=== PATIENT | female | born 1975 | race Caucasian/White ===

== ENCOUNTER 2017-09-30 16:08 | Emergency (ER) | payer OTHER ==
[2017-09-30 16:52] VITALS: BP 118/93; PULSE 111
[2017-09-30 17:01] VITALS: BP 123/87; PULSE 98
--- NOTE | 2017-09-30 17:02 | PD ---
HPI Chief Complaint elevated BP and decr FM Date Seen: Sep 30, 2017 Time Seen: 16:56 Travel History International Travel<30 Days: No Contact w/Intl Traveler<30Days: No Known Affected Area: No History of Present Illness HPI Pt is a 41y/o @ 37.wks. She has PNC with Dr. Camp. She presents today for evaluation of elevated BPs and decr FM. She states that today she felt "clammy" so she decided to check her BP. It was elevated and kept going up. Highest reading was 154/102. She denies PARDO but states she has gained 5lbs since last week. Reports that swelling is minimal and "the best it has been in weeks". She also reports decr FM today. States that she works from home and has been focused on work but had two felipa aid drinks today and onyl felt one big movement. She called the office and was advised to present to triage for evaluation. Denies LOF, VB, ctx. Weeks Gestation: 37 Para: 0 : 3 History Past Medical History Medical History: Denies Significant Hx Obstetric History Obstetric History SAB x2 current Past Surgical History Narrative Surgical tonsillectomy appendectomy cholecystectomy wisdom teeth extraction removal of skin cancer Family History Family History: Negative Social History Alcohol Use: No Tobacco Use: No Substance Abuse: No Allergies-Medications Comments NKDA Narrative Medication zofran phenergan Review of Systems Except as stated in HPI: all other systems reviewed are Neg Physical Exam Narrative General: well developed, well nourished, no acute distress HEENT: normocephalic atraumatic, extraocular movements intact, neck supple Abdomen: soft, gravid, nontender, nondistended Uterus: fundus term Extremities: full range of motion Skin: normal coloration, no rashes, no suspicious skin lesions noted Neurologic: cranial nerves 2-12 grossly intact, normal muscle tone, normal gait Psychiatric: normal mood and affect, appropriate FHTs: 150s, +accels, no decels, moderate variability, reactive Hypericum: quiet Cvx: deferred Data Data Vital Signs Reviewed: Yes Orders Orders Vital Signs (Adult) .ON ADMISSION (09/30/17 16:51) ^ Labor Status (09/30/17 16:51) ^ Non Stress Test (09/30/17 16:51) Cbc No Diff, Includes Plts (09/30/17 16:51) Comprehensive Metabolic Panel (09/30/17 16:51) MDM Plan 41y/o @ 37.2wks with AMA, elevated BPs, and decr FM. -- BPs in triage 110-120/80-90 -- PIH labs ordered -- neg proteinuria -- FHTs cat 1 Update: PIH labs WNL. BPs normotensive. Stable for d/c home with precautions. Diagnosis Diagnosis: Primary Impression: 37 weeks gestation of Additional Impressions: AMA (advanced maternal age) multigravida 35+ Elevated blood pressure affecting in third trimester, antepartum Decreased movement affecting management of in third trimester Madonna Mijares MD Sep 30, 2017 17:02
[2017-09-30 17:15] VITALS: BP 121/90; PULSE 90
[2017-09-30 17:24] LABS: HEMOGLOBIN 12.9 GM/DL (11.6-15.3); MEAN CELL VOLUME 83.8 FL (80.0-100.0); MEAN CORPUSCULAR HEMOGLOBIN 27.8 PG (27.0-34.0); MEAN CORPUSCULAR HGB CONC 33.2 % (32.0-36.0); MEAN PLATELET VOLUME 10.5 FL (7.0-11.0); PLATELET COUNT 150 TH/MM3 (150-450); RED BLOOD COUNT 4.66 MIL/MM3 (4.00-5.30); RED CELL DISTRIBUTION WIDTH 15.3 % (11.6-17.2); WHITE BLOOD COUNT 8.9 TH/MM3 (4.0-11.0)
[2017-09-30 17:30] VITALS: BP 126/84; PULSE 74
[2017-09-30 17:42] LABS: ALBUMIN 2.6 GM/DL (3.4-5.0); ALT (GPT) 27 U/L (10-53); AST (GOT) 30 U/L (15-37); BICARBONATE 20.1 MEQ/L (21.0-32.0); BLOOD UREA NITROGEN 8 MG/DL (7-18); CALCIUM 8.8 MG/DL (8.5-10.1); CHLORIDE 105 MEQ/L (98-107); CREATININE 0.69 MG/DL (0.50-1.00); GLOMERULAR FILTRATION RATE 95 ML/MIN (>89); GLUCOSE,RANDOM 71 MG/DL (74-106); SODIUM (NA) 138 MEQ/L (136-145)
[2017-09-30 17:44] LABS: ALKALINE PHOSPHATASE 177 U/L (45-117); TOTAL BILIRUBIN ADULT 0.3 MG/DL (0.2-1.0)
[2017-09-30 17:45] VITALS: BP 120/85; PULSE 101
== END 2017-09-30 18:03 | disposition home or self-care (01) ==
LOC: HOBED 16:08
DX: O26.893 Other specified pregnancy related conditions, third trimester (principal); R03.0 Elevated blood-pressure reading, without diagnosis of hypertension; O36.8130 Decreased fetal movements, third trimester, not applicable or unspecified; O09.523 Supervision of elderly multigravida, third trimester; Z3A.37 37 weeks gestation of pregnancy
CPT/HCPCS: 36415; 59025; 80053; 85027

== ENCOUNTER 2017-10-08 22:22 | Emergency (ER) | payer OTHER ==
--- NOTE | 2017-10-09 00:52 | PD ---
HPI Chief Complaint pt c/o contractions q 2-5 min since 7:30 pm. Travel History International Travel<30 Days: No Contact w/Intl Traveler<30Days: No Known Affected Area: No History of Present Illness HPI 41 yo denies LOF, VB. states dr. brantley is planning a secondary to macrosomia. complicated by ama, and MTHFR heterozygote. Weeks Gestation: 38 Para: 0 : 1 History Past Medical History Narrative Medical heterozygote MTHFR Obstetric History Obstetric History Past Surgical History Narrative Surgical tonsillectomy cholecystectomy appendectomy wisdom teeth extraction Family History Family History: Negative Social History Alcohol Use: No Tobacco Use: No Substance Abuse: No Allergies-Medications (Allergen,Severity, Reaction): Coded Allergies: No Known Allergies (Unverified , 10/09/17) Review of Systems Except as stated in HPI: all other systems reviewed are Neg Physical Exam AFVSS Narrative GENERAL: Well-nourished, well-developed patient. SKIN: Warm and dry. HEAD: Normocephalic and atraumatic. EYES: No scleral icterus. No injection or drainage. ENT: No nasal drainage noted. Mucous membranes pink. Airway patent. NECK: Supple, trachea midline. No JVD. CARDIOVASCULAR: Regular rate and rhythm without murmurs, gallops, or rubs. RESPIRATORY: Breath sounds equal bilaterally. No accessory muscle use. BREASTS: Bilateral exam showed no masses , no retractions, no nipple discharge. ABDOMEN/GI: Abdomen soft, non-tender, bowel sounds present, no rebound, no guarding Gravid term Fundal Height: [-] GENITOURINARY: Cervix: [-] cl Dilatation: [-] th Effacement: [-] Station: [-] high Presentation: [-] Membranes: [intact] Uterine Contractions: [-] q 2-9 min FHT's: Category: [-] 1 Baseline: [-] Reactive: [-] Variability: [-] Decels: [-] EXTREMITIES: No cyanosis or edema. BACK: Nontender without obvious deformity. No CVA tenderness. NEUROLOGICAL: Awake and alert. Motor and sensory grossly within normal limits. Five out of 5 muscle strength in all muscle groups. Normal speech. Data Data Vital Signs Reviewed: Yes Orders Orders Vital Signs (Adult) .ON ADMISSION (10/09/17 00:39) ^ Labor Status (10/09/17 00:39) Urinalysis - C+S If Indicated (10/09/17 00:39) ^ Non Stress Test (10/09/17 00:39) ^ Hydration (10/09/17 00:39) Pamg-1 Test .ONCE (10/09/17 00:39) Group B Strep: Negative MDM Medical Record Reviewed: Yes Interpretation(s) False labor at term ama Narrative Course / MDM pt ambulated for over 1 hour and had no cervical change, she was then discharged home Plan d/c home Diagnosis Diagnosis: Primary Impression: Additional Impression: False labor at or after 37 completed weeks of gestation Disposition: 01 DISCHARGE HOME Condition: Good Patient Instructions: General Instructions, Having Your Baby: The Labor Process (GEN) Additional Instructions: RETURN FOR CONTRACTIONS, LOSS OF FLUID (WATER BREAKING), VAGINAL BLEEDING, OR DECREASED MOVEMENT DRINK 8-10 LARGE GLASSES OF WATER EVERY DAY KEEP SCHEDULED APPOINTMENT WITH YOUR PROVIDER Departure Forms: Tests/Procedures Minna Lemon MD Oct 09, 2017 00:52
== END 2017-10-09 00:53 | disposition home or self-care (01) ==
LOC: HOBED 22:22
DX: O47.1 False labor at or after 37 completed weeks of gestation (principal); Z3A.38 38 weeks gestation of pregnancy
CPT/HCPCS: 59025; 84112

== ENCOUNTER 2017-10-12 05:33 | Inpatient (IN) | payer OTHER ==
[2017-10-12] VITALS (9 sets, daily range): BP systolic 102–135; BP diastolic 52–82; PULSE 79–91; RESP 18–20; TEMP 97.7–97.8; O2SAT 97–100
[~2017-10-12] VITALS: Ht 162.6 cm; Wt 90.0 kg
[2017-10-12] MEDS ORDERED: LACTATED RINGER'S 1000 ML INJ 1,000 ML IV ONE (06:03)
--- NOTE | 2017-10-12 06:17 | HHI.HP ---
HPI Chief Complaint scheduled term primary , suspected macrosomia, unfavorable Palmer score, particulate amniotic matter on imaging concerning for meconium Date Seen: Oct 12, 2017 Time Seen: 06:00 Travel History International Travel<30 Days: No Contact w/Intl Traveler<30Days: No Known Affected Area: No History of Present Illness HPI 41 yo with oconnor IUP at 39 weeks, EDC 10/19/17, admit for scheduled primary due to suspected macrosomia/cephalopelvic disproportion. Cervix very unfavorable for induction at long thick and posterior, firm. Imaging in office 10/11/17 concerning for particulate matter in amniotic fluid, meconium suspected. Due to advanced maternal age as well as these factors, pt was educated and discussion on options, as patient desires permanent sterilization she opted for primary over labor induction. Risks discussed with patient and she and both voiced understanding. Feels like she has been chloe regularly since last Wednesday but cervix remains closed thick and posterior. No VB or LOF. Good FM. Pain 3/10 from pelvic pressure and contractions. Weeks Gestation: 39 Para: 0 : 3 Miscarriage: 2 : 0 History Past Medical History Narrative Medical advanced maternal age heterozygote MTHFR severe nausea/vomiting of Rh negative ASCUS PAP Obstetric History Obstetric History SAB x 2 G3 = current Past Surgical History Surgical History: No Previous Surgery Family History Family History: Negative Social History Alcohol Use: No Tobacco Use: No Substance Abuse: No Allergies-Medications (Allergen,Severity, Reaction): Coded Allergies: No Known Allergies (Unverified , 10/09/17) Review of Systems General / Constitutional: Weight Gain, No: Fever, Chills, Other Eyes: No: Diploplia, Blurred Vision, Visual changes, Pain, Photophobia HENT: No: Headaches, Vertigo, Lightheadedness Cardiovascular: No: Irregular Rhythm, Chest Pain or Discomfort, Palpitations, Tachycardia, Syncope, Varicosities, Edema, Cyanosis Respiratory: No: Cough, Short of Breath, Other Gastrointestinal: No: Nausea, Vomiting, Diarrhea Genitourinary: Pelvic Pain (pressure), No: Decreased Urinary Output, Oliguria Musculoskeletal: No: Limited ROM, Weakness, Cramping, Edema, Pain Skin: No Rash, No Itching, No Dryness, No Lumps, No Change in Pigmentation, No Change in Nails, No Alopecia, No Lesions Neurologic: No: Weakness, Dizziness, Syncope, Focal Abnormalities, Coordination Problem, Headache, Slurred Speech, Seizures Psychiatric: No: Depression, Suicidal Ideations, Homicidal Ideation Endocrine: No: Heat Intolerance, Cold Intolerance, Polydipsia, Polyuria, Other Physical Exam Narrative GENERAL: Well-nourished, well-developed patient. SKIN: Warm and dry. HEAD: Normocephalic and atraumatic. EYES: No scleral icterus. No injection or drainage. ENT: No nasal drainage noted. Mucous membranes pink. Airway patent. NECK: Supple, trachea midline. No JVD. CARDIOVASCULAR: Regular rate and rhythm without murmurs, gallops, or rubs. RESPIRATORY: Breath sounds equal bilaterally. No accessory muscle use. BREASTS: deferred ABDOMEN/GI: Abdomen soft, non-tender, bowel sounds present, no rebound, no guarding Gravid to [39] weeks size Fundal Height: [39] GENITOURINARY: External Genitalia: intact and normal in appearance BUS glands: [wnl] Cervix: [-posterior, firm] Dilatation: [closed] Effacement: [thick] Station: [-3] Presentation: [vtx] Membranes: [intact] Uterine Contractions: [irritability] FHT's: Category: [I] Baseline: [130s] Reactive: [y] Variability: [y] Decels: [n] EXTREMITIES: No cyanosis or edema. BACK: Nontender without obvious deformity. No CVA tenderness. NEUROLOGICAL: Awake and alert. Motor and sensory grossly within normal limits. Five out of 5 muscle strength in all muscle groups. Normal speech. Caprini VTE Risk Assessment Caprini VTE Risk Assessment: No/Low Risk (score <= 1) VTE Pharm Contraindication: Epidural catheter Caprini Risk Assessment Model Point Value = 1 Point Value = 2 Point Value = 3 Point Value = 5 Age 41-60 Minor surgery BMI > 25 kg/m2 Swollen legs Varicose veins or History of unexplained or recurrent spontaneous Oral contraceptives or hormone replacement Sepsis (< 1 month) Serious lung disease, including pneumonia (< 1 month) Abnormal pulmonary function Acute myocardial infarction Congestive heart failure (< 1 month) History of inflammatory bowel disease Medical patient at bed rest Age 61-74 Arthroscopic surgery Major open surgery (> 45 min) Laparoscopic surgery (> 45 min) Malignancy Confined to bed (> 72 hours) Immobilizing plaster cast Central venous access Age >= 75 History of VTE Family history of VTE Factor V Leiden Prothrombin [id number] Lupus anticoagulant Anticardiolipin antibodies Elevated serum homocysteine Heparin-induced thrombocytopenia Other congenital or acquired thrombophilia Stroke (< 1 month) Elective arthroplasty Hip, pelvis, or leg fracture Acute spinal cord injury (< 1 month) Prophylaxis Regimen Total Risk Factor Score Risk Level Prophylaxis Regimen 0-1 Low Early ambulation 2 Moderate Order ONE of the following: *Sequential Compression Device (SCD) *Heparin 5000 units SQ BID 3-4 Higher Order ONE of the following medications: *Heparin 5000 units SQ TID *Enoxaparin/Lovenox 40 mg SQ daily (WT < 150 kg, CrCl > 30 mL/min) *Enoxaparin/Lovenox 30 mg SQ daily (WT < 150 kg, CrCl > 10-29 mL/min) *Enoxaparin/Lovenox 30 mg SQ BID (WT < 150 kg, CrCl > 30 mL/min) AND/OR *Sequential Compression Device (SCD) 5 or more Highest Order ONE of the following medications: *Heparin 5000 units SQ TID (Preferred with Epidurals) *Enoxaparin/Lovenox 40 mg SQ daily (WT < 150 kg, CrCl > 30 mL/min) *Enoxaparin/Lovenox 30 mg SQ daily (WT < 150 kg, CrCl > 10-29 mL/min) *Enoxaparin/Lovenox 30 mg SQ BID (WT < 150 kg, CrCl > 30 mL/min) AND *Sequential Compression Device (SCD) Data Data Vital Signs Reviewed: Yes Orders Orders Admit To Inpatient (10/12/17 ) Code Status (10/12/17 06:03) Vital Signs (Adult) .ON ADMISSION (10/12/17 06:03) Activity Oob Ad Jessica (10/12/17 06:03) Heart (10/12/17 06:03) Urinary Catheter Management JOSEF.Q8H (10/12/17 06:03) ^ Preps (10/12/17 06:03) Scd / Stevie / Foot Pump JOSEF.QSHIFT (10/12/17 06:03) ^ Ultrasound For Locatio (10/12/17 06:03) Diet Npo (10/12/17 Breakfast) Lactated Ringer's 1000 Ml Inj (Lr 1000 M (10/12/17 06:03) Lactated Ringer's 1000 Ml Inj (Lr 1000 M (10/12/17 06:33) Cefazolin 2 Gm Premix (Ancef 2 Gm Premix (10/12/17 07:15) Citric Acid-Sodium Citrate Liq (Bicitra (10/12/17 07:45) Type And Screen (10/12/17 06:03) Complete Blood Count With Diff (10/12/17 06:03) Urinalysis - C+S If Indicated (10/12/17 06:03) Drug Screen, Random Urine (10/12/17 06:03) Inpatient Certification (10/12/17 ) Specimen To Be Collected PRN (10/12/17 06:03) Specimen To Be Collected PRN (10/12/17 06:03) Group B Strep: Negative Assessment/Plan Problem List: (1) Large for gestational age fetus affecting management of mother ICD Codes: O36.60X0 - Maternal care for excessive growth, unspecified trimester, not applicable or unspecified Status: Acute Qualifiers: Qualified Codes: O36.63X0 - Maternal care for excessive growth, third trimester, not applicable or unspecified (2) Advanced maternal age (AMA) in Status: Chronic Assessment and Plan 41 yo with oconnor IUP at 39 wks admit for primary due to suspected large for dates/CPD 1) primary : pt counseled on length on risks of primary CD versus labor induction; pt strongly desires primary CD as also desires permanent sterilization with BTL; on office evaluation pt very unfavorable for induction with suspected cephalopelvic disproportion (CPD) and imaging showing particulate matter in amniotic fluid concerning for meconium; due to combination of these factors decision to proceed with delivery via , consents signed 2) GBS neg 3) Rh neg - s/p Rhogam at 28 wks, for PP eval 4) MTHFR heterozygote 5) ASCUS PAP - for repeat PP 6) status: vertex, male, EFW >8# 7) family planning: pt desires bilateral tubal ligation at time of , consents signed 8) dispo: anticipate d/c to home POD#2-3 Discharge Planning POD#2-3 Tova Camp MD Oct 12, 2017 06:17
[2017-10-12 06:21] LABS: AUTOMATED NEUTROPHIL # 5.2 TH/MM3 (1.8-7.7); BASOPHIL # 0.1 TH/MM3 (0-0.2); EOSINOPHIL # 0.1 TH/MM3 (0-0.4); EOSINOPHIL % 1.4 % (0.0-4.0); HEMATOCRIT 36.6 % (35.0-46.0); LYMPH % 22.5 % (9.0-44.0); LYMPHOCYTE # 1.8 TH/MM3 (1.0-4.8); MEAN CELL VOLUME 83.5 FL (80.0-100.0); MEAN CORPUSCULAR HEMOGLOBIN 27.3 PG (27.0-34.0); MEAN CORPUSCULAR HGB CONC 32.7 % (32.0-36.0); MEAN PLATELET VOLUME 10.6 FL (7.0-11.0); MONO % 11.1 % (0.0-8.0); MONOCYTE # 0.9 TH/MM3 (0-0.9); PLATELET COUNT 159 TH/MM3 (150-450); RED BLOOD COUNT 4.39 MIL/MM3 (4.00-5.30); RED CELL DISTRIBUTION WIDTH 16.1 % (11.6-17.2); WHITE BLOOD COUNT 8.1 TH/MM3 (4.0-11.0)
[2017-10-12] MEDS ORDERED: LACTATED RINGER'S 1000 ML INJ 1,000 ML IV SCH ×2 (06:33→13:36)
[2017-10-12 06:55] LABS: BACTERIA, URINE MANY /hpf; BILIRUBIN, URINE NEG (NEG); BLOOD, URINE NEG (NEG); GLUCOSE,URINE NEG (NEG); HYALINE CAST, URINE 1 /lpf (RARE); KETONE, URINE NEG (NEG); NITRITE,URINE NEG (NEG); SQUAMOUS EPITHELIAL CELL URINE 4 /hpf (0-5); URINE COLOR YELLOW (YELLW/STRAW); URINE LEUKOCYTE ESTERASE TRACE (NEG)
[2017-10-12] MEDS ORDERED: PROM25TA10 PO (07:13)
[2017-10-12] MEDS ORDERED: ZOFR4TAB PO (07:13)
[2017-10-12] MEDS ORDERED: ceFAZolin 2 GM PREMIX 50 ML IV SCH (07:15)
[2017-10-12] MEDS ORDERED: ACETAMINOPHEN 1000 MG/100 ML 100 ML IV ONE ×2 (07:35→08:45)
[2017-10-12] MEDS ORDERED: MORPHINE SULFATE PF 5 MG/10 ML VIAL ONE (07:35)
[2017-10-12] MEDS ORDERED: CITRIC ACID-SODIUM CITRATE LIQ 30 ML UDC PO SCH (07:45)
--- NOTE | 2017-10-12 08:39 | PD.OB.DELI ---
Procedure Note Section Procedure Pre Op Diagnosis: (1) Large for gestational age fetus affecting management of mother (2) Advanced maternal age (AMA) in Post Op Diagnosis: (1) S/P primary low transverse (2) S/P tubal ligation (3) Large for gestational age fetus affecting management of mother (4) Advanced maternal age (AMA) in Performed by Tova Camp Procedure: Primary Low Transverse Sec Indication for delivery: Other (suspected cephalopelvic disproportion, unfavorable cervix at term ) Previous condition: None Informed consent obtained: For anesthesia, For procedure Confirmed correct: Patient, Procedure, Site, Time-out taken Anesthesia: Spinal Medication prior to procedure: As documented in eMAR Monitoring during procedure: Blood pressure monitoring, landscape crew member, Pulse oximetry Urinary catheter: Inserted using sterile technique, To dependent drainage, ml urine output (300) Sterile preparation: Duraprep, In usual fashion, With drapes to expose affected area Position: Supine with wedge to right side Operative Features Skin Incision: Pfannenstiel Uterine Incision: Low transverse w/knife / scissors Membranes Ruptured: Artificially, Amount of liquid (scant), Appearance of fluid (terminal meconium) Presentation: Vertex Delivery date: Oct 12, 2017 Delivery time: 07:57 Delivery of : Uneventful : Male, Single One Minute : 8 Five Minute : 9 Weight: 7#6oz Status of : Viable, Cord blood, Nursery present Placenta delivered: Intact Medications: Antibiotics (ancef 2g IV preop) Estimated blood loss: 500 mL Procedure tolerated: Well Maternal Condition: Stable Condition: Stable Procedure in detail see dictated op note for full details Tova Camp MD Oct 12, 2017 08:39
[2017-10-12] MEDS ORDERED: DOCUSATE SODIUM 50 MG/SENNA 8.6 MG TAB PO PRN (08:45)
[2017-10-12] MEDS ORDERED: SODIUM CHLORIDE 0.9% FLUSH 10 ML FLUSH IV FLUSH PRN (08:45)
[2017-10-12] MEDS ORDERED: OXYTOCIN 30 UNITS-500ML PREMIX 500 ML IV ONE (08:45)
[2017-10-12] MEDS ORDERED: ACETAMINOPHEN 325 MG TAB PO PRN (08:45)
[2017-10-12] MEDS ORDERED: oxyCODONE/ACETAMINOPHEN 5 MG/325 MG TAB PO PRN ×2 (08:45)
[2017-10-12] MEDS ORDERED: SIMETHICONE 80 MG CHEWABLE TAB PO PRN (08:45)
[2017-10-12] MEDS ORDERED: ONDANSETRON HCL 4 MG/2 ML VIAL IV PUSH PRN (08:45)
[2017-10-12] MEDS ORDERED: SODIUM CHLORIDE 0.9% FLUSH 10 ML FLUSH IV FLUSH SCH (09:00)
--- NOTE | 2017-10-12 09:14 | MP ---
cc: Tova Camp MD DATE OF OPERATION: PREOPERATIVE DIAGNOSES: 1. Rodriguez intrauterine at 39 weeks 0 days. 2. Suspected cephalopelvic disproportion. 3. Advanced maternal age in . 4. MTHFR heterozygote. 5. Rh negative. 6. Permanent sterilization desired. POSTOPERATIVE DIAGNOSES: 1. Rodriguez intrauterine at 39 weeks 0 days. 2. Suspected cephalopelvic disproportion. 3. Advanced maternal age in . 4. MTHFR heterozygote. 5. Rh negative. 6. Postoperative day number zero, status post primary low transverse delivery and bilateral tubal ligation. 7. Permanent sterilization desired. INDICATIONS FOR PROCEDURE: Marivel Johnson is a 41-year-old 3, now para 1-0-2-1, who has been seen and evaluated for in the office with size measuring greater than dates at around 35 weeks. On ultrasound imaging, estimated weight was larger than expected for dates and on pelvic exam, the patient was found to have a very narrow pelvis with unfavorable cervix at term. It was discussed with the patient the options including option for induction versus primary due to the patient's desire for permanent sterilization and concern for possibility of meconium in amniotic fluid based on ultrasound imaging, patient elected for primary . PROCEDURE PERFORMED: 1. Primary low transverse delivery. 2. Bilateral tubal ligation using Sandra technique. SURGEON: Tova Camp MD TYPE OF ANESTHESIA: Spinal. ESTIMATED BLOOD LOSS: 500 mL IV FLUID REPLACEMENT: 2200 mL URINE OUTPUT: 300 mL of clear urine draining in the Willoughby bag at the conclusion of the procedure. PROPHYLAXIS: Ancef 2 grams IV was given preoperatively and SCDs were on and functioning throughout the entire case. COMPLICATIONS: None. COUNTS: Sponge, lap, instrument and needle count correct x2 at the conclusion of the procedure. SPECIMEN: left fallopian tube segment, right fallopian tube segment FINDINGS: Intraoperative findings include a vigorous viable male infant weighing 7 pounds 6 ounces, Apgars of 8 and 9. Amniotic fluid did have terminal meconium upon delivery. Normal placenta, normal uterus and bilateral fallopian tubes and ovaries. Fallopian tubes were successfully ligated during the procedure. PROCEDURE IN DETAIL: After reviewing the informed consent, the patient was taken to the operating suite, where a timeout was performed to identify the patient, planned procedure, any known allergies to drugs or drug products. The patient was placed in a sitting up position on the operative table and spinal anesthesia was administered without difficulty and found to be adequate. The patient was then laid in dorsal supine position with a bump under her right side and abdomen and perineum were prepped and draped in normal sterile fashion. A Willoughby catheter was placed using sterile technique. A Pfannenstiel type skin incision was made with the scalpel and carried down to the underlying layer of fascia with the Bovie. The fascia was incised in the midline. Incision was extended sharply with Sunshine scissors laterally. The superior fascial edge was then elevated with Aida clamps. Rectus muscles were dissected off sharply with Sunshine scissors. Kochers were then moved inferiorly to the fascial edge and again, the rectus muscles were dissected off sharply. The rectus muscles were then in the midline. Peritoneum was identified, elevated with hemostat and entered sharply with Metzenbaum scissors. Incision was extended to allow visualization of intra-abdominal contents. Bladder blade was placed. A bladder flap was not made. Low transverse uterine incision was made with a scalpel. This was extended bluntly. Infant's head was grasped and delivered out through the incision. With gentle maneuvering the rest of the body readily followed. There was terminal meconium noted in the amniotic fluid upon delivery. Delayed cord clamping of 45 seconds was performed. Infant was vigorous and crying upon delivery. Infant was then handed off to the awaiting nursery staff after cord was clamped and cut. The placenta was then delivered spontaneously with gentle fundal massage and cord traction. The uterus was exteriorized, cleared of all clots and debris with sterile moist lap sponges. Hysterotomy was repaired in a double-layer, first in a running locked layer then an imbricating layer with #1 chromic. The attention was then turned to the bilateral fallopian tubes, the mid-section of each was successfully excised at their mid portion using standard Sandra ligation and excision technique using 0 catgut suture. Portions of fallopian tubes were passed off the operative field and excellent hemostasis was noted at ligation sites. Posterior cul-de-sac was then irrigated copiously with warm sterile saline. Uterus was returned to the abdomen. Additional irrigation with suction was performed. A layer of Interceed was placed over the repaired hysterotomy and excellent hemostasis was noted. Peritoneum was closed in a running layer with 2-0 chromic. Fascia was closed in a running layer with #1 Vicryl. Subcutaneous tissue was irrigated copiously with warm sterile saline and suctioned. Series of interrupted sutures using 2-0 chromic was used to close the subcutaneous tissue and skin was closed in subcuticular fashion with 3-0 Monocryl. The skin was cleaned and dried. Steri-Strips and standard bandage was then placed. The procedure concluded at this point. The patient tolerated the procedure well without complication. DISPOSITION: The patient's estimated length of stay is 2-3 postoperative days. Infant is in nursery status. MD RHEA Lovett/MONIE , 08:35 AM , 09:13 AM MTDD
[2017-10-12] MEDS ORDERED: OXYTOCIN 30 UNITS-500ML PREMIX 500 ML ONE (09:16)
[2017-10-12] MEDS ORDERED: EPIDURAL-DIPHENHYDRAMINE HCL 50 MG/ML VIAL IV PUSH PRN (10:15)
[2017-10-12] MEDS ORDERED: EPIDURAL-DIPHENHYDRAMINE HCL 50 MG CAP PO PRN (10:15)
[2017-10-12] MEDS ORDERED: EPIDURAL-NO SYSTEMIC NARCOTICS PRN (10:15)
[2017-10-12] MEDS ORDERED: EPIDURAL-DO NOT ADMINISTER ANTICOAGULANTS PRN (10:15)
[2017-10-12] MEDS ORDERED: EPIDURAL-NALOXONE HCL 0.4 MG/ML AMP IV PUSH PRN (10:15)
[2017-10-12] MEDS ORDERED: PHENYLEPH/NS 1000 MCG/10 ML SYR IV ONE (12:00)
[2017-10-12] MEDS ORDERED: OXYTOCIN 10 UNIT/ML AMP IV ONE (12:00)
[2017-10-12] MEDS ORDERED: DEXAMETHASONE SOD PHOS 4 MG/ML VIAL IV ONE (12:00)
[2017-10-12] MEDS ORDERED: ONDANSETRON HCL 4 MG/2 ML VIAL IV ONE (12:00)
[2017-10-12] MEDS: IBUPROFEN 600 MG TAB PO PRN ×2 (13:30→19:41)
[2017-10-12] MEDS ORDERED: OXYTOCIN 30 UNITS-500ML PREMIX 500 ML IV PRN (13:45)
[2017-10-12] MEDS ORDERED: ZOLPIDEM TARTRATE 5 MG TAB PO PRN (21:00)
[2017-10-13 00:20] VITALS: BP 137/94; PULSE 94; RESP 19; TEMP 98.1
[2017-10-13] MEDS: IBUPROFEN 600 MG TAB PO PRN ×4 (01:13→21:41)
[2017-10-13 03:58] VITALS: BP 108/82; PULSE 74; RESP 18; TEMP 97.7
[2017-10-13 06:10] LABS: BASOPHIL % 0.1 % (0.0-2.0); EOSINOPHIL % 0.1 % (0.0-4.0); HEMATOCRIT 28.6 % (35.0-46.0); HEMOGLOBIN 9.4 GM/DL (11.6-15.3); LYMPH % 11.9 % (9.0-44.0); LYMPHOCYTE # 1.5 TH/MM3 (1.0-4.8); MEAN CELL VOLUME 85.3 FL (80.0-100.0); MEAN CORPUSCULAR HGB CONC 32.8 % (32.0-36.0); MEAN PLATELET VOLUME 10.6 FL (7.0-11.0); MONO % 8.2 % (0.0-8.0); NEUT % 79.7 % (16.0-70.0); PLATELET COUNT 144 TH/MM3 (150-450); RED BLOOD COUNT 3.36 MIL/MM3 (4.00-5.30); RED CELL DISTRIBUTION WIDTH 16.1 % (11.6-17.2); WHITE BLOOD COUNT 12.6 TH/MM3 (4.0-11.0)
--- NOTE | 2017-10-13 11:47 | HHI.OB ---
Subjective Post Operative Day: 1 Remarks POD#1, Doing well, transitioning well Objective Vitals/I&O Vital Signs Date Time Temp Pulse Resp B/P (MAP) Pulse Ox O2 Delivery O2 Flow Rate FiO2 10/13/17 03:58 97.7 74 18 108/82 (91) 10/13/17 00:20 98.1 94 19 137/94 (108) 10/12/17 23:30 18 10/12/17 20:45 18 10/12/17 14:00 97.7 97 10/12/17 14:00 91 20 135/82 (99) 10/12/17 13:53 18 10/12/17 13:53 98 10/12/17 13:52 82 111/55 (73) 10/12/17 13:43 97.8 84 18 110/59 (76) 99 Result Diagram: 10/13/17 0544 Objective Remarks GENERAL: Well-nourished, well-developed patient. CARDIOVASCULAR: Regular rate and rhythm without murmurs, gallops, or rubs. RESPIRATORY: Breath sounds equal bilaterally. No accessory muscle use. ABDOMEN/GI: Abdomen soft, non-tender, bowel sounds present. Incision: Clean, dry and intact. Fundus: Firm, non-tender at umbilicus. GENITOURINARY: Light to moderate bleeding. EXTREMITIES: No cyanosis or edema, non-tender, without signs of DVT. Medications and IVs Current Medications Medications (Trade) Dose Ordered Sig/Santosh Route Start Time Stop Time Status Last Admin Oxytocin 500 ml @ 100 mls/hr UNSCH X1 PRN IV 10/12/17 13:45 10/13/17 13:44 (NS Flush) 2 ml BID IV FLUSH 10/12/17 09:00 (NS Flush) 2 ml UNSCH PRN IV FLUSH 10/12/17 08:45 (Mylicon Chew) 80 mg QID PRN PO 10/12/17 08:45 (Tylenol) 650 mg Q6H PRN PO 10/12/17 08:45 (Motrin) 600 mg Q6H PRN PO 10/12/17 08:45 10/13/17 08:14 (Percocet 5-325 Mg) 1 tab Q4H PRN PO 10/12/17 08:45 10/12/17 22:04 (Percocet 5-325 Mg) 2 tab Q4H PRN PO 10/12/17 08:45 (Charlene-Colace) 2 tab Q12H PRN PO 10/12/17 08:45 10/12/17 19:40 (Ambien) 5 mg HS PRN PO 10/12/17 21:00 (M-M-R Ii Inj) 0.5 ml ONCE ONCE SQ 10/13/17 16:00 10/13/17 16:01 (Boostrix Inj) 0.5 ml ONCE ONCE IM 10/13/17 16:00 10/13/17 16:01 (Zofran Inj) 4 mg Q6H PRN IV PUSH 10/12/17 08:45 Assessment/Plan Problem List: (1) Large for gestational age fetus affecting management of mother ICD Codes: O36.60X0 - Maternal care for excessive growth, unspecified trimester, not applicable or unspecified Status: Acute Qualifiers: Qualified Codes: O36.63X0 - Maternal care for excessive growth, third trimester, not applicable or unspecified (2) Advanced maternal age (AMA) in Status: Chronic Assessment and Plan 41 yo with [place] IUP at 39 wks admit for primary due to suspected large for dates/CPD 1) primary : pt counseled on length on risks of primary CD versus labor induction; pt strongly desires primary CD as also desires permanent sterilization with BTL; on office evaluation pt very unfavorable for induction with suspected cephalopelvic disproportion (CPD) and imaging showing particulate matter in amniotic fluid concerning for meconium; due to combination of these factors decision to proceed with delivery via , consents signed 2) GBS neg 3) Rh neg - s/p Rhogam at 28 wks, for PP eval 4) MTHFR heterozygote 5) ASCUS PAP - for repeat PP 6) status: vertex, male, EFW >8# 7) family planning: pt desires bilateral tubal ligation at time of , consents signed 8) dispo: anticipate d/c to home POD#2-3 10/03/2017 ;POD#1, Doing well,stable,anticipate discharge tomorrow, Day#2 Discharge Planning POD#2-3 Gerson Solo MD Oct 13, 2017 11:47
[2017-10-13] MEDS ORDERED: DIPHTH/TETANUS/ACEL PERTUSSIS (BOOSTER) 0.5 ML VIAL/PFS IM ONE (16:00)
[2017-10-13] MEDS ORDERED: MEASLES, MUMPS, RUBELLA VACCINE 0.5 ML VIAL SQ ONE (16:00)
--- NOTE | 2017-10-13 17:10 | HHI.DCPOC ---
Discharge Care Plan Diagnosis: (1) S/P tubal ligation (2) S/P primary low transverse (3) Advanced maternal age (AMA) in Your Health Problems Are: delivery Report Symptoms to Your Doctor -Temperature above 100.5 degrees -Redness, of incision or excessive or foul smelling drainage -Unusual pain or calf pain -Increased vaginal bleeding -Painful or difficulty urinating -Feelings of extreme sadness or anxiety after 2 weeks Goals to Promote Your Health * To prevent worsening of your condition and complications * To maintain your health at the optimal level Directions to Meet Your Goals Take your medications as prescribed Follow your dietary instruction Follow activity as directed Ensure plenty of rest for recovery Drink fluids for hydration Keep your appointments as scheduled Take your immunizations and boosters as scheduled If your symptoms worsen call your PCP, if no PCP go to Urgent Care Center or Emergency Room Smoking is Dangerous to Your Health. Avoid second hand smoke Call the 24-hour crisis hotline for domestic abuse at Jr Villarreal MD Oct 13, 2017 17:10
--- NOTE | 2017-10-13 17:11 | HHI.PR ---
PHLEBOTOMY INSTRUCTOR Note Note Looked patient up in the PDMP and reviewed her report Jr Villarreal MD Oct 13, 2017 17:11
[2017-10-13 20:00] VITALS: BP 105/71; PULSE 81; RESP 18; TEMP 98.1; O2SAT 97
[2017-10-14] MEDS: IBUPROFEN 600 MG TAB PO PRN (03:53)
[2017-10-14] MEDS ORDERED: IBUP-232 PO (09:34)
[2017-10-14] MEDS ORDERED: PERC5TAB12 PO (09:34)
--- NOTE | 2017-10-14 09:37 | HHI.OB ---
Subjective Post Operative Day: 2 Remarks Doing well, pain controlled, vaginal bleeding less than menses, ambulating, voiding a tolerating regular diet. Objective Vitals/I&O Vital Signs Date Time Temp Pulse Resp B/P (MAP) Pulse Ox O2 Delivery O2 Flow Rate FiO2 10/13/17 20:00 98.1 81 18 105/71 (82) 97 Result Diagram: 10/13/17 0544 Objective Remarks GENERAL: Well-nourished, well-developed patient. CARDIOVASCULAR: Regular rate and rhythm without murmurs, gallops, or rubs. RESPIRATORY: Breath sounds equal bilaterally. No accessory muscle use. ABDOMEN/GI: Abdomen soft, non-tender, bowel sounds present. Incision: Clean, dry and intact. Fundus: Firm, non-tender at umbilicus. GENITOURINARY: Light to moderate bleeding. EXTREMITIES: No cyanosis or edema, non-tender, without signs of DVT. Medications and IVs Current Medications Medications (Trade) Dose Ordered Sig/Santosh Route Start Time Stop Time Status Last Admin (NS Flush) 2 ml BID IV FLUSH 10/12/17 09:00 (NS Flush) 2 ml UNSCH PRN IV FLUSH 10/12/17 08:45 (Mylicon Chew) 80 mg QID PRN PO 10/12/17 08:45 (Tylenol) 650 mg Q6H PRN PO 10/12/17 08:45 (Motrin) 600 mg Q6H PRN PO 10/12/17 08:45 10/14/17 03:53 (Percocet 5-325 Mg) 1 tab Q4H PRN PO 10/12/17 08:45 10/12/17 22:04 (Percocet 5-325 Mg) 2 tab Q4H PRN PO 10/12/17 08:45 (Charlene-Colace) 2 tab Q12H PRN PO 10/12/17 08:45 10/12/17 19:40 (Ambien) 5 mg HS PRN PO 10/12/17 21:00 (Zofran Inj) 4 mg Q6H PRN IV PUSH 10/12/17 08:45 Assessment/Plan Problem List: (1) Large for gestational age fetus affecting management of mother ICD Codes: O36.60X0 - Maternal care for excessive growth, unspecified trimester, not applicable or unspecified Status: Acute Qualifiers: Qualified Codes: O36.63X0 - Maternal care for excessive growth, third trimester, not applicable or unspecified (2) Advanced maternal age (AMA) in Status: Chronic Assessment and Plan 41-year-old status post scheduled primary low transverse and bilateral tubal ligation at 39 weeks due to suspected macrosomia. 1. Postoperative day/post day #2: Afebrile, vital signs stable, discharge home today. Discussed post and postoperative precautions, expectations and follow-up. Patient is asymptomatic with her anemia, -Male , circumcised today. 2. Thrombocytopenia: Likely gestational, potentially recheck at visit. 3. Rh-: RhoGam per protocol 4. MTH FR heterozygote: No previous history of VT E, no need for prophylaxis. 5. ASCUS PAP - for repeat PP Jr Villarreal MD Oct 14, 2017 09:37
== END 2017-10-14 13:21 | disposition home or self-care (01) | DRG 767 ==
LOC: H2EB 05:33 → H1EA 09:48
PROVIDERS: ADMIT Obstetrics & Gynecology; ATTEND Obstetrics & Gynecology
PROC: 0UB70ZZ Excision of Bilateral Fallopian Tubes, Open Approach (ICD-10-PCS; principal; 2017-10-12)
DX: O36.63X0 Maternal care for excessive fetal growth, third trimester, not applicable or unspecified (principal); Z37.0 Single live birth; D69.6 Thrombocytopenia, unspecified; E72.12 Methylenetetrahydrofolate reductase deficiency; O99.12 Other diseases of the blood and blood-forming organs and certain disorders involving the immune mechanism complicating childbirth; O26.893 Other specified pregnancy related conditions, third trimester; O33.9 Maternal care for disproportion, unspecified; D64.9 Anemia, unspecified; O99.02 Anemia complicating childbirth; O77.0 Labor and delivery complicated by meconium in amniotic fluid; O99.284 Endocrine, nutritional and metabolic diseases complicating childbirth; Z67.91 Unspecified blood type, Rh negative; Z30.2 Encounter for sterilization; Z3A.39 39 weeks gestation of pregnancy
CPT/HCPCS: 59025; 80307; 81001; 85025; 85461; 86850; 86900; 86901; 87086; 88302; 90384; C1765; J0131; J1100; J2274; J2370; J2405; J2590; J2790; J7120; Q0163